=== PATIENT | female | born 1935 | race Asian ===

== ENCOUNTER 2017-07-01 14:04 | Emergency (ER) | payer MEDICARE, BC, OTHER ==
--- NOTE | 2017-07-01 15:28 | RAD ---
HISTORY: Diplopia, subacute trauma COMPARISONS: None TECHNIQUE: Multiple contiguous axial CT scans were obtained of the face without intravenous contrast, with coronal and sagittal multiplanar reformations. FINDINGS: BONES: There is no displaced fracture or dislocation. The orbital rim is intact. The zygomatic arch is intact. The pterygoid plates are intact. ORBITS: The globes are round. The optic nerves are symmetric. The extraocular musculature is normal. There is no post septal or intraconal inflammatory change. There is no retrobulbar hematoma. PARANASAL SINUSES: The paranasal sinuses are clear. BRAIN AND SOFT TISSUE: Unremarkable. OTHER: None. IMPRESSION: NO FACIAL FRACTURE. THE ORBITS ARE UNREMARKABLE.
[2017-07-01 15:34] VITALS: BP 147/78
--- NOTE | 2017-07-01 16:21 | UC ---
Head Injury HPI - HPI Summary HPI Summary: MISSED A STEP YESTERDAY AND RIGHT FACE HIT CORNER OF WALL. BRUISING TO RIGHT EYELID, WELL LACERATION TO RIGHT SIDE OF FACE AND REDNESS IN RIGHT EYE. SINCE INJURY HAS NO PAIN WITH MOVEMENT OF EYE. BUT HAS SOME BLURRINESS AND DOUBLE VISION. NO SLURRED SPEECH. NO WEAKNESS. NO DIFFICULTY WITH BALANCE. NO NECK PAIN. ABLE TO FOCUS EACH EYE INDEPENDENTLY. HAS APPOINTMENT WITH DR BHAGAT' S SERVICE TOMORROW MORNING - History Of Current Complaint Chief Complaint: UCTrauma Stated Complaint: FACIAL INJURY Time Seen by Provider: 07/01/17 14:50 Hx Obtained From: Patient Onset/Duration: Sudden Onset, Lasting Days, Still Present Severity Currently: Moderate Severity Initially: Mild Pain Intensity: 0 Pain Scale Used: 0-10 Numeric Character: Dull Aggravating Factor(s): Nothing Alleviating Factor(s): Nothing Associated Signs And Symptoms: Negative: LOC (Time In Secs./Mins/Hrs), LOC Duration Unknown, Confusion, Memory Loss, Seizure, Epistaxis, Dental Malocclusion, Neck Pain, Nausea, Vomiting - Risk Factors SDH Risk Factor: Recent Trauma, Elderly - Allergies/Home Medications Allergies/Adverse Reactions: Allergies Allergy/AdvReac Type Severity Reaction Status Date / Time Iodine Allergy Intermediate Hives Verified 07/01/17 14:11 Home Medications: Home Medications NK [No Home Medications Reported] 07/01/17 [History Confirmed 07/01/17] PMH/Surg Hx/FS Hx/Imm Hx Previously Healthy: Yes - Surgical History Surgical History: Yes Surgery Procedure, Year, and Place: bilat lumpectomy 2012. - Family History Known Family History: Negative: Seizure Disorder, Blood Disorder - Social History Occupation: Retired Lives: With Family Alcohol Use: None Substance Use Type: None Smoking Status (MU): Never Smoked Tobacco Review of Systems Constitutional: Negative Skin: Bruising, Other - LACERATION RIGHT SIDE OF FACE Eyes: Diplopia, Eye Redness ENT: Negative Respiratory: Negative Cardiovascular: Negative Gastrointestinal: Negative Genitourinary: Negative Motor: Negative Neurovascular: Negative Musculoskeletal: Negative Neurological: Negative Psychological: Negative All Other Systems Reviewed And Are Negative: Yes Physical Exam Triage Information Reviewed: Yes Appearance: Well-Appearing, No Pain Distress, Well-Nourished Vital Signs: Initial Vital Signs Temp 99.0 F 07/01/17 14:08 Pulse 88 07/01/17 14:08 Resp 16 07/01/17 14:08 BP 142/82 07/01/17 14:08 Pulse Ox 98 07/01/17 14:08 Vital Signs Reviewed: Yes Eyes: Positive: Other: - SUBCONJUNCTIVAL HEMMORHAGE RIGHT EYE; BRUISING, HEMATOMA TO RIGHT EYELID ENT Exam: Normal ENT: Positive: Normal ENT inspection, Hearing grossly normal, TMs normal Dental Exam: Normal Neck exam: Normal Neck: Positive: Supple, Nontender, No Lymphadenopathy Respiratory Exam: Normal Respiratory: Positive: Chest non-tender, Lungs clear, Normal breath sounds, No respiratory distress Cardiovascular Exam: Normal Cardiovascular: Positive: RRR, No Murmur, Pulses Normal Abdominal Exam: Normal Musculoskeletal Exam: Normal Musculoskeletal: Positive: Strength Intact, ROM Intact Neurological Exam: Normal Neurological: Positive: Alert Psychological Exam: Normal Skin: Positive: Other - >24 HOUR OLD LACERATION RIGHT SIDE OF FACE Head Injury Course/Dx - Differential Dx/Diagnosis Differential Diagnosis/HQI/PQRI: Concussion Without LOC, Hematoma, Orbital Fracture Provider Diagnoses: RIGHT SUBCONJUNCTIVAL HEMATOMA; 2CM LACERATION TO RIGHT SIDE OF HEAD WITH STERI REPAIR, HEAD TRAUMA, HEMATOMA RIGHT EYELIDS Discharge - Discharge Plan Condition: Stable Disposition: HOME Patient Education Materials: Subconjunctival Hemorrhage (ED), Black Eye (ED), Steristrips (ED), Laceration Without Closure (ED) Referrals: Belem Obrien MD [Primary Care Provider] - John Bhagat MD [Medical Doctor] - 1 Day
== END 2017-07-01 16:02 | disposition home or self-care (01) ==
LOC: UCEAST 14:04
DX: H11.31 Conjunctival hemorrhage, right eye (principal); S01.81XA Laceration without foreign body of other part of head, initial encounter; S00.11XA Contusion of right eyelid and periocular area, initial encounter; S09.90XA Unspecified injury of head, initial encounter; W22.09XA Striking against other stationary object, initial encounter; Y93.9 Activity, unspecified; Y92.9 Unspecified place or not applicable
CPT/HCPCS: 70480; 99211; 99212; G0463

== ENCOUNTER 2017-07-02 10:04 | Emergency (ER) | payer MEDICARE, BC, OTHER ==
[2017-07-02 12:06] VITALS: BP 139/80
== END 2017-07-02 12:28 | disposition left against medical advice (07) ==
LOC: UCEAST 10:04
DX: Z51.89 Encounter for other specified aftercare (principal); Z53.21 Procedure and treatment not carried out due to patient leaving prior to being seen by health care provider

== ENCOUNTER 2019-08-07 09:46 | Emergency (ER) | payer MEDICARE, BC ==
[2019-08-07 10:14] VITALS: BP 110/74
--- NOTE | 2019-08-07 11:06 | UC ---
Skin Complaint HPI - HPI Summary HPI Summary: 83-year-old female with a rash in the groin area which has been progressively worsening over the past week. She is on some new medications. She denies any fever or chills. She has not been sexually active about 20 years. She denies any abnormal vaginal discharge. She states the rash is not really painful however sometimes when she touched it is painful. No drainage. The rash has been spreading around to her left buttocks. She also has 3 areas on her back of concern. She has 2 scabbed areas in her head she would like checked. [facility]. - History of Current Complaint Chief Complaint: UCRash Time Seen by Provider: 08/07/19 10:14 Stated Complaint: RASH Hx Obtained From: Patient ?: No Onset/Duration: Gradual Onset Skin Exposure Onset/Duration: Days Ago Timing: Constant Onset Severity: Mild Current Severity: Moderate Pain Intensity: 0 Location: Other - Patient has 2 scabbed areas on the top of her head, she has 2 areas on her back that are scabbed, she has a worsening rash in the groin which is spreading around to the left buttock. Character: Redness, Raised Aggravating Factor(s): Nothing Alleviating Factor(s): Nothing Associated Signs & Symptoms: Positive: Negative Related History: Recent change in medication - Allergy/Home Medications Allergies/Adverse Reactions: Allergies Allergy/AdvReac Type Severity Reaction Status Date / Time iodine Allergy Intermediate Hives Verified 08/07/19 10:03 Iodinated Contrast Media Allergy Unknown Dry Eyes Verified 08/07/19 10:03 [Iodinated Contrast- Oral and IV Dye] Home Medications: Home Medications Lenalidomide [Revlimid] 15 mg PO DAILY 08/07/19 [History Confirmed 08/07/19] Obinutuzumab* [Gazyva*] 1,000 mg .SEE ORDER MONTHLY 08/07/19 [History Confirmed 08/07/19] Torsemide TAB* [Demadex*] 10 mg PO DAILY 08/07/19 [History Confirmed 08/07/19] dexAMETHasone [Dexamethasone] 4 mg PO WEEKLY 08/07/19 [History Confirmed ] PMH/Surg Hx/FS Hx/Imm Hx Previously Healthy: Yes Cancer History: Breast Cancer, Other - Lymphoma - Surgical History Surgical History: Yes Surgery Procedure, Year, and Place: bilateral lumpectomy - Family History Known Family History: Negative: Seizure Disorder, Blood Disorder - Social History Alcohol Use: None Substance Use Type: None Smoking Status (MU): Never Smoked Tobacco Review of Systems All Other Systems Reviewed And Are Negative: Yes Skin: Positive: Rash - 2 scabbed areas on the top of her head 3 scabbed areas on her back and the rash in her groin which is progressively worsening. Is Patient Immunocompromised?: No Physical Exam Triage Information Reviewed: Yes Appearance: Well-Appearing, No Pain Distress, Well-Nourished Vital Signs: Initial Vital Signs Temp 99 F 08/07/19 10:06 Pulse 90 08/07/19 10:06 Resp 18 08/07/19 10:06 BP 110/74 08/07/19 10:06 Pulse Ox 94 08/07/19 10:06 Vital Signs Reviewed: Yes ENT: Positive: Pharynx normal, TMs normal, Uvula midline Neck: Positive: Supple, Nontender, No Lymphadenopathy Musculoskeletal: Positive: Strength Intact, ROM Intact, Edema @ - Patient has bilateral lower leg edema more on the right than the left for which she is under the care of her primary care provider. Neurological: Positive: Alert, Muscle Tone Normal Psychological Exam: Normal Skin: Positive: Rashes - There are 2 scabs on the top for head which appear to be bug bites that she has scratched. The 3 areas on her back appear to be bug bites which she has scratched. The rash in her groin area has some bruising appearance to it some purplish red appearance, it includes the left fall the around to the perineum and her buttock. There are areas that look herpetic. It is nonblanching. Does not appear to be petechial. The rash on her left buttock is warm to touch but nontender. There are 2 or 3 areas on her left vulva that are bluish in appearance, non-tender almost of a wartlike appearance to them. Course/Dx - Course Course Of Treatment: The patient is comfortable here and not in any distress. She can put bacitracin ointment on the areas that appear like bug bites and avoid scratching. Dr. Romero evaluated the patient as well and because of the medication she is on and her more than likely depressed immune system, is felt that she should be evaluated further in the emergency room. The rash area on her left buttock is warm to touch. The patient is agreeable to this plan of action and will go by private car to the emergency room for evaluation. - Diagnoses Provider Diagnosis: Rash and other nonspecific skin eruption Discharge ED - Sign-Out/Discharge Documenting (check all that apply): Patient Departure All imaging exams completed and their final reports reviewed: No Studies - Discharge Plan Condition: Fair Disposition: HOME-RECOMMEND TO ED Referrals: Belem Obrien MD [Primary Care Provider] - Additional Instructions: After the evaluation by the nurse practitioner, it is recommended that you go to the emergency room for further evaluation of the worsening rash where you should receive additional testing that can be completed in the emergency department. It is recommended that you go directly to the emergency department. This evaluation may include blood work or imaging. This testing will be directed and decided by the provider that evaluates you within the emergency department. - Billing Disposition and Condition Condition: FAIR Disposition: Home-Recommend to ED
== END 2019-08-07 11:12 | disposition home health service (06) ==
LOC: UCEAST 09:46
DX: R21 Rash and other nonspecific skin eruption (principal); Z85.3 Personal history of malignant neoplasm of breast; Z85.72 Personal history of non-Hodgkin lymphomas
CPT/HCPCS: 99212; G0463

== ENCOUNTER 2019-08-07 11:40 | Emergency (ER) | payer MEDICARE, BC ==
[2019-08-07 11:46] VITALS: BP 105/70
--- OUTSIDE RECORDS SUMMARY | 2019-08-07 12:00 | XMS REPORT | Continuity of Care Document ---
:1935 External Reference #:[id number] Author Name Bobby Mcgrath M.D. (transmitted by agent of provider Maryann Ferguson) Address [address] [facility] [address] [place] [address] Care Team Providers Name Role Phone Belem Obrien MD - Internal Medicine Care Team Information Pcb Designer Problems Active Problems Provider Date Electrocardiogram abnormal Bobby Mcgrath M.D. Onset: 12/14/2013 Limb Problems & Other Problems Bobby Mcgrath M.D. Onset: 12/14/2013 Unspecified Edema Bobby Mcgrath M.D. Onset: 12/14/2013 Mitral valve disorder Bobby Mcgrath M.D. Onset: 01/25/2014 Rheumatic disease of tricuspid valve Bobby Mcgrath M.D. Onset: 01/25 Heart murmur Bobby Mcgrath M.D. Onset: 01/25/2014 Social History Type Date Description Comments Sex Unknown Tobacco Use Start: Unknown Never Smoked Cigarettes Smoking Status Reviewed: 07/08/19 Never Smoked Cigarettes ETOH Use Denies alcohol use Tobacco Use Start: Unknown Patient has never smoked Recreational Drug Use Denies Drug Use Exercise Type/Frequency Exercises sporadically Limited by breathing difficulty Allergies, Adverse Reactions, Alerts Active Allergies Reaction Severity Comments Date CT Contrast Dye 04/26/2019 Inactive Allergies NKDA 12/14/2013 Medications Active Medications SIG Qnty Indications Ordering Date Provider Obsarahd infusions began April Unknown 06/01/2019 Infusion 2019. Pt now receiving monthly infusions Magnesium 1 by mouth one time Unknown 400mg per day Tablets Vitamin D3 1 by mouth every day Unknown 5000Unit Capsules Vitamin C Angelina C. Unknown 500mg Tablets Mushroom Supplement [employer] [place] Unknown Tail Ibuprofen 2 by mouth as needed Unknown 200mg Tablets Allergy Relief 2 by mouth as needed Unknown 25mg Tablets Proair HFA Inhale 2 Puffs 4 Unknown Times Daily as Needed 108(90Base) mcg/Act Aerosol Prednisone 6 tablets by mouth Unknown 10mg for 4 days Tablets Uva Ursi 3 caps po qd Unknown Medications Administered in Office Medication SIG Qnty Indications Ordering Provider Date Inj, Regadenoson, 0.1 MG Ko Ahumada, DO [facility] 04/24/2016 Injection Technetium TC 99M Ko Ahumada, DO [facility] 04/24/2016 Tetrofosmin, Per Unit Dose Up To 40 Millicuries Injection Immunizations CPT Code Status Date Vaccine Lot # [id number] Given 11/01/2008 Zoster (Zostavax) 88382 Given 11/01/2008 Influenza Virus 3Yrs & Over 59079 Given 11/01/2008 Influenza Virus 3Yrs & Over Vital Signs Date Vital Result Comment 07/08/2019 11:17am Height 61 inches 5'1" Weight 125.00 lb with shoes Heart Rate 82 /min BP Systolic Sitting 110 mmHg lue reg cuff BP Diastolic Sitting 64 mmHg lue reg cuff BP Systolic Standing 112 mmHg lue reg cuff BP Diastolic Standing 68 mmHg lue reg cuff Respiratory Rate 16 /min BMI (Body Mass Index) 23.6 kg/m2 Ejection Fraction 65-70% echo. 07/05/19 06/02/2019 8:27am Height 61 inches 5'1" Weight 121.12 lb Heart Rate 80 /min BP Systolic Sitting 124 mmHg BP Diastolic Sitting 80 mmHg O2 % BldC Oximetry 91 % BMI (Body Mass Index) 22.9 kg/m2 Ejection Fraction 60-65% Echo 03/27/16 Results Test Date Facility Test Result H/L Range Note Laboratory test 06/02/2019 [facility] B-Type 29 pg/mL <=[address] [place] [address] Peptide BNP [phone] Xray 06/02/2019 [facility] Chest PA & Lat 2 <pending> [address] [place] [address] [phone] Laboratory test 02/22/2019 [facility] Gram Stain Smear SEE RESULT [address] [place] [address] [phone] Body Fluid Culture (Bottles) SEE RESULT BELOW 2 Lactate 02/22/2019 [facility] Lactate 265 U/L 3 Dehydrogenase,BF [address] Dehydrogenase, [place] [address] [phone] Fluid Source PLEURAL 4 Body Fluid Glucose 02/22/2019 [facility] Glucose, BF 110 mg/dL [address] [place] [address] [phone] Fluid Source PLEURAL 6 Body Fluid Total 02/22/2019 [facility] Total Protein, 3.5 g/ dL [address] [place] [address] [phone] Fluid Source PLEURAL 8 Platelet 02/22/2019 [facility] Platelet 209 10^3/uL Normal 150 -[address] Count [place], [place] [address] [phone] Mean Platelet Volume 8.8 fL Normal 7.4-10.4 Inr/Protime 02/22/2019 [facility] Inr 0.90 Normal 0.77-1.[address] [place] [address] [phone] Laboratory test 02/22/2019 [facility] Partial 30.5 Normal 26.0 -36.[address] [address] Time PTT [phone] SEE RESULT BELOW Name: TAMMIZOIE Wang : [address]: Belem Obrien MD Acct: [id number] Unit: [id number] AGE: 83 Location: SP Re02/22/19 SEX: F Status: REG REF SPEC: [id number] FERMIN: 02/22/19-[address] [facility] [address]: Belem Obrien MD REQ: [id number] RECD: 02/22/19 STATUS: LUCI MCALLISTER DR: Gopi Mcgrath MD _ SOURCE: BODY FLUID SPDESC:PLEURA ORDERED: Gram Stain Procedure Result Reported Site Gram Stain Final 02/22/19- 1224 ML 4+ Nucleated Cells 2+ Neutrophils No Organisms Seen BY CYTOSPIN SMEAR * - Main Lab . END OF REPORT DEPARTMENT OF PATHOLOGY, [address] [place] [address] Lorenzo Montaño M.D. Director CATHY # [id number] 2 SEE RESULT BELOW Name: ZOIE PARR : [address]: Belem Obrien MD Acct: [id number] Unit: [id number] AGE: 83 Location: SP Re02/22/19 SEX: F Status: REG REF SPEC: [id number] FERMIN: 02/22/19-[address] [facility] [address]: Belem Obrien MD REQ: [id number] RECD: 02/22/19 STATUS: LUCI MCALLISTER DR: Gopi Mcgrath MD _ SOURCE: PLEURAL FL SPDESC: ORDERED: BF Cult Bottles Procedure Result Reported Site BF Aerobic Culture Bottle Final 02/27/19- 1128 ML No Growth Day 5 BF Anaerobic Culture Bottle Final 02/27/19- 1128 ML No Growth Day 5 * ML - [facility] . END OF REPORT DEPARTMENT OF PATHOLOGY, [address] [place] [address] Lorenzo Montaño M.D. Director [facility] # [id number] 3 REFERENCE VALUE Not Applicable 4 Test Performed by: [facility] Real Time Tomography [facility] [address] [place] [address] 5 REFERENCE VALUE Not Applicable 6 Test Performed by: [address] [address] 7 REFERENCE VALUE Not Applicable ADDITIONAL INFORMATION This test has been modified from the mechanical product design engineer's instructions. Its performance characteristics were determined by [facility] in a manner consistent with CLIA requirements. This test has not been cleared or approved by the U.S. Food and Drug Administration. 8 Test Performed by: [address] [address] Procedures Date Code Description Status 07/05/2019 41394 ECHO Transthoracic, Real-Time 2D With Doppler And Color Completed Flow 06/23/2019 70893 Diffusing Capacity Completed 06/23/2019 98083 Plethysmography Determination Lung Volumes & Per Airway Completed Resist 06/23/2019 01618 Pulmonary Function><Bronchodil Completed 06/02/2019 53046 EKG Tracing & Interpretation Completed Medical Devices Description No Information Available Encounters Type Date Location Provider Dx Diagnosis Office Visit 06/02/2019 [facility] Barbra Banks, R60.0 Localized edema 8:30a N.P. 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 07/08/2019 I34.0 Nonrheumatic mitral (valve) Bobby Mcgrath M.D. insufficiency 07/08/2019 I36.1 Nonrheumatic tricuspid (valve) Bobby Mcgrath M.D. insufficiency 07/08/2019 I37.1 Nonrheumatic pulmonary valve Bobby Mcgrath M.D. insufficiency 07/08/2019 I31.3 Pericardial effusion (noninflammatory) Bobby Mcgrath M.D. 07/05/2019 R06.00 Dyspnea, unspecified [facility] 07/05/2019 R94.31 Abnormal electrocardiogram [ECG] [EKG] [facility] 07/05/2019 R60.0 Localized edema [facility] 07/05/2019 I34.0 Nonrheumatic mitral (valve) [facility] insufficiency 06/23/2019 R06.00 Dyspnea, unspecified Angela Bender MD 06/02/2019 R94.31 Abnormal electrocardiogram [ECG] [EKG] Bobby Mcgrath M.D. 06/02/2019 R60.0 Localized edema Barbra S. Foster, N.P. 06/02/2019 I34.0 Nonrheumatic mitral (valve) Barbra S. Foster, N.P. insufficiency 06/02/2019 I36.1 Nonrheumatic tricuspid (valve) Barbra S. Foster, N.P. insufficiency 06/02/2019 I37.1 Nonrheumatic pulmonary valve Barbra S. Foster, N.P. insufficiency 06/02/2019 R06.00 Dyspnea, unspecified Barbra S. Foster, N.P. 04/26/2019 J90 Pleural effusion, not elsewhere Goran Box MD classified Plan of Treatment Future Appointment(s):07/26/2019 3:00 pm - [facility] Schedule at [facility]12/13/2019 10:30 am - Julian Dash MD at [facility] Xncpfqafrym81/22/2019 - Bobby Mcgrath M.D.R06.00 Dyspnea, isvnwlxujuzC93.0 Nonrheumatic mitral (valve) insufficiencyFollow up:10 months ovI36.1 Nonrheumatic tricuspid (valve) rtdyzkhjwjikwU82.1 Nonrheumatic pulmonary valve rmplsizetbgfqT12.3 Pericardial effusion (noninflammatory)New Orders:Echocardiogram, Limited Study, Ordered: Functional Status Description No Information Available Mental Status Description No Information Available Referrals Description No Information Available
--- NOTE | 2019-08-07 12:09 | ED ---
Skin Complaint - HPI Summary HPI Summary: This patient is a 83 year old F presenting to [facility] accompanied by female friend with a chief complaint of rash starting from vaginal area spreading to the left back of her thigh and hip since last Friday08/01/19. Symptoms aggravated by pushing on area of symptom. Symptoms alleviated by nothing. Patient reports that she noticed the rash when she was wiping and the toilet paper felt rough and painful so she started putting on an ointment and then an abx ointment hoping it would improve her symptoms but reports that they had no effect. Pt denies any obvious discharge but reports a little pinkness, possibly blood, but denies any smell. Patient reports when she was taking a bath she noticed the bumps on her back side and thought her vaginal area rash was spreading. Pt reports pain when pushing on it but otherwise only feels its presence. Pt denies fevers, nausea, urinary symptoms (taking water pill due to edema). Pt denies previous history of a similar rash but hx shingles. Pt reports her doctor is unsure of the cause and thinks they arose due to cancer treatment medications. Pt reports her doctor is concerned of herpes or any skin infection. Pt reports itchiness near the back of her neck if she touches it and gooey-ness on the top of her head. Pt reports DIRECTOR GENERAL said the top of her head is a bug bite. Pt has edema on her lower extremities. Home Medications Medication Instructions Recorded Confirmed Type Lenalidomide [Revlimid] 15 mg PO DAILY 08/07/19 08/07/19 History Obinutuzumab* [Gazyva*] 1,000 mg .SEE ORDER MONTHLY 08/07/19 08/07/19 History Torsemide TAB* [Demadex*] 10 mg PO DAILY 08/07/19 08/07/19 History dexAMETHasone [Dexamethasone] 4 mg PO WEEKLY 08/07/19 08/07/19 History - History of Current Complaint Chief Complaint: EDRashSkinAbscess Time Seen by Provider: 08/07/19 11:51 Stated Complaint: "RASH PER PT COMING FROM [facility]" Hx Obtained From: Patient Onset/Duration: Started Weeks Ago - 1, Still Present Timing: Constant Pain Intensity: 0 Pain Scale Used: 0-10 Numeric Skin Location: Other: - left thigh and vaginal area Aggravating Symptom(s): Other: - pushing on it Alleviating Symptom(s): Nothing Associated Signs & Symptoms: Negative - denies fevers, nausea, urinary symptoms , and smell in vaginal area reports no obvious discharge but slight blood - Allergy/Home Medications Allergies/Adverse Reactions: Allergies Allergy/AdvReac Type Severity Reaction Status Date / Time iodine Allergy Intermediate Hives Verified 08/07/19 11:46 Iodinated Contrast Media Allergy Unknown Dry Eyes Verified 08/07/19 11:46 [Iodinated Contrast- Oral and IV Dye] PMH/Surg Hx/FS Hx/Imm Hx Endocrine/Hematology History: Denies: Hx Diabetes Cardiovascular History: Denies: Hx Hypertension History: Reports: Hx Renal Disease - abnormal gfr Denies: Hx Dialysis Musculoskeletal History: Denies: Hx Osteoporosis - Cancer History Cancer Type, Location and Year: Lymphoma x 25 years and bilateral breast cancer 2013 with lumpectomies. - Surgical History Surgery Procedure, Year, and Place: bilateral lumpectomy Infectious Disease History: No Infectious Disease History: Denies: Hx Clostridium Difficile, Hx Hepatitis, Hx Human Immunodeficiency Virus (HIV), Hx of Known/Suspected MRSA, Hx Shingles, Hx Tuberculosis, Hx Known/ Suspected VRE, Hx Known/Suspected VRSA, History Other Infectious Disease, Traveled Outside the [place] in Last 30 Days - Family History Known Family History: Negative: Seizure Disorder, Blood Disorder - Social History Alcohol Use: None Hx Substance Use: No Substance Use Type: Reports: None Hx Tobacco Use: No Smoking Status (MU): Never Smoked Tobacco Review of Systems Negative: Fever Negative: Nausea Genitourinary: Other - denies urinary symptoms Positive: discharge - slight pinkness Positive: Edema - on her legs Positive: Rash, Other - itchiness of the back of neck, 'googey'ness on top of head All Other Systems Reviewed And Are Negative: Yes Physical Exam - Summary Physical Exam Summary: General: Well-developed, Well-nourished FEMALE. No acute distress. HEENT: Normocephalic, Atraumatic. Eyes: Conjuctiva normal, PERRL. Ears: TMs within normal limits. Nares: (-) discharge, (-) erythema. Oropharynx: Clear, mucous membranes moist, (-) exudates. Neck: Soft, FROM, (-) lymphadenopathy, (-) thyromegaly, (-) JVD. Cardiovascular: Normal sinus rhythm, (-) murmur. Lungs: Clear to auscultation bilaterally (-) wheezes, (-) rales, (-) rhonchi. Abdomen: Soft, non-tender, non-distended, (-) organomegaly, normal bowel sounds. Back: (-) CVA tenderness Extremities: No edema. Skin: Warm, dry, clusters of erythematous papules and vesicles on the left suprapubic area, labial area, and left buttock Neuro: Alert and oriented x3, no focal deficits. Psychiatric: Mood normal, affect normal. Triage Information Reviewed: Yes Vital Signs On Initial Exam: Initial Vitals Temp Pulse Resp BP Pulse Ox 98.7 F 85 16 105/70 93 08/07/19 11:43 08/07/19 11:43 08/07/19 11:43 08/07/19 11:43 08/07/19 11:43 Vital Signs Reviewed: Yes Diagnostics - Vital Signs Vital Signs Temp Pulse Resp BP Pulse Ox 08/07/19 11:43 98.7 F 85 16 105/70 93 - Laboratory Lab Statement: Any lab studies that have been ordered have been reviewed, and results considered in the medical decision making process. Course/Dx - Course Assessment/Plan: This patient is a 83 year old F [place] [facility] [place] friend with a chief complaint of rash starting from vaginal area spreading to the left back of her thigh and hip since last Friday. Pt denies any obvious discharge but reports a little pinkness, possibly blood, but denies any smell. Pt denies fevers, nausea, urinary symptoms (taking water pill due to edema). Pt denies previous history of a similar rash but hx shingles. Physical Exam Findings show no abnormalities except for clusters of erythematous papules and vesicles on the left suprapubic area, labial area, and left buttock. Patient will be discharged with prescription for Famciclovir 500 mg and follow up from Dr. Obrien within 3 days. The patient is agreeable with this plan. - Diagnoses Provider Diagnoses: Shingles Discharge ED - Sign-Out/Discharge Documenting (check all that apply): Patient Departure - discharge Patient Received Moderate/Deep Sedation with Procedure: No - Discharge Plan Condition: Stable Disposition: HOME Prescriptions: Famciclovir TAB(NF) [Famvir TAB(NF)] 500 mg PO TID 7 Days #21 tab Patient Education Materials: [employer] (ED) Referrals: Belem Obrien MD [Primary Care Provider] - 3 Days Additional Instructions: Please follow up with your primary care physician within three days. Please return to ED for any new or worsening symptoms. - Billing Disposition and Condition Condition: STABLE Disposition: Home - Attestation Statements Document Initiated by Rosmerye: Yes Documenting Scribe: Vianey Camacho Provider For Whom Bhupendraibe is Documenting (Include Credential): Dr. Dina Burgos MD Scribe Attestation: Vianey Deshpande, scribed for Dr. Dina Burgos MD on 08/07/19 at 1334. Scribe Documentation Reviewed: Yes Provider Attestation: The documentation as recorded by the Vianey sawyer accurately reflects the service I personally performed and the decisions made by me, Dr. Dina Burgos MD Status of Scribe Document: Viewed
== END 2019-08-07 12:24 | disposition home or self-care (01) ==
LOC: ED 11:40
DX: B02.9 Zoster without complications (principal); Z85.3 Personal history of malignant neoplasm of breast; Z85.72 Personal history of non-Hodgkin lymphomas; Z91.041 Radiographic dye allergy status; Z79.899 Other long term (current) drug therapy
CPT/HCPCS: 99212; 99281; G0463

== ENCOUNTER 2020-11-09 21:08 | Inpatient (IN) ==
[2020-11-09] MEDS ORDERED: NS 0.9% 1000 ml BAG 1,000 ML IV ONE (22:11)
[2020-11-09] MEDS ORDERED: Tetan/Diph/Pertus SYR(Tdap) 0.5 ML SYR(BOOSTRIX) use SYR contains LATEX IM ONE (22:32)
[2020-11-09 22:40] LABS: ABS Lymphocytes 0.4 10^3/ul (1.0-4.8); ABS Monocytes 0.5 10^3/ul (0-0.8); ABS Neutrophils 6.7 10^3/ul (1.5-7.7); Eosinophil % 0.2 %; Hematocrit 29 % (35-47); Hemoglobin 10.2 g/dL (12.0-16.0); Lymphocyte % 4.8 %; Mean Corpuscular HGB Conc 36 g/dL (31-36); Mean Corpuscular Hemoglobin 33 pg (27-31); Mean Corpuscular Volume 93 fL (80-97); Mean Platelet Volume 8.6 fL (7.4-10.4); Platelet Count 140 10^3/uL (150-450); Red Blood Count 3.06 10^6 /uL (3.70-4.87); Red Cell Distribution Width 18 % (10-15); White Blood Count 7.5 10^3/uL (3.5-10.8)
[2020-11-09 22:53] LABS: INR 1.1 (0.82-1.09)
[2020-11-09 22:58] LABS: Albumin 3.5 g/dL (3.2-5.2); Albumin/Globulin Ratio 2.2 (1-3); Calcium 8.1 mg/dL (8.6-10.3); EGFR African American 133.3 (>60); EGFR Non-African American 110.2 (>60); Globulin 1.6 g/dL (2-4); Potassium 4.1 mmol/L (3.5-5.0); Total Bilirubin 0.4 mg/dL (0.2-1.0); Total Protein 5.1 g/dL (6.4-8.9)
[2020-11-09 23:00] LABS: Troponin I 0.01 ng/mL (<0.03)
[2020-11-10 01:19] LABS: BUN/Creatinine Ratio 21.4 (8-20); Calcium 7.5 mg/dL (8.6-10.3); EGFR African American 174.4 (>60); EGFR Non-African American 144.1 (>60)
[2020-11-10 01:53] LABS: Urine Creatinine Concentration 119.43 mg/dL
[2020-11-10 03:22] LABS: Urine Appearance Clear; Urine Bilirubin Negative (Negative); Urine Blood Negative (Negative); Urine Color Yellow; Urine Glucose Negative (Negative); Urine Ketones 1+ (Negative); Urine Nitrite Negative (Negative); Urine Protein Negative (Negative); Urine Urobilinogen Negative (Negative)
[2020-11-10 08:11] LABS: BUN/Creatinine Ratio 13.3 (8-20); Calcium 7.8 mg/dL (8.6-10.3); EGFR Non-African American 133.1 (>60); Potassium 4.1 mmol/L (3.5-5.0)
[2020-11-10 12:55] LABS: BUN/Creatinine Ratio 15.4 (8-20); Calcium 7.6 mg/dL (8.6-10.3); EGFR African American 189.9 (>60)
[2020-11-10] MEDS ORDERED: Dexamethasone IV 4 MG/ML 5 ML VIAL (20 MG) ONE (19:59)
[2020-11-10 21:15] LABS: Calcium 8.1 mg/dL (8.6-10.3); EGFR Non-African American 129.7 (>60); Potassium 3.9 mmol/L (3.5-5.0)
[2020-11-11 01:14] LABS: BUN/Creatinine Ratio 15.4 (8-20); Calcium 7.7 mg/dL (8.6-10.3); EGFR African American 189.9 (>60); Potassium 3.9 mmol/L (3.5-5.0)
[2020-11-11 05:27] LABS: BUN/Creatinine Ratio 13.6 (8-20); Calcium 7.4 mg/dL (8.6-10.3); EGFR African American 165.2 (>60); EGFR Non-African American 136.6 (>60); Potassium 3.7 mmol/L (3.5-5.0)
[2020-11-11] MEDS ORDERED: Dextrose 50% Syringe 50 ml 25 GM/50 ML SYRINGE ONE (05:29)
[2020-11-11] MEDS ORDERED: Dextrose 50% Syringe 50 ml 25 GM/50 ML SYRINGE IV PUSH ONE (05:31)
[2020-11-11 09:45] LABS: BUN/Creatinine Ratio 13.6 (8-20); Blood Urea Nitrogen 6 mg/dL (6-24); CO2 Carbon Dioxide 16 mmol/L (22-32); Chloride 103 mmol/L (101-111); EGFR African American 165.2 (>60); EGFR Non-African American 136.6 (>60); Glucose 60 mg/dL (70-100); Sodium 126 mmol/L (135-145)
[2020-11-11 09:55] LABS: Anion Gap 7 mmol/L (2-11)
[2020-11-11] MEDS ORDERED: Dextrose 50% Syringe 50 ml 25 GM/50 ML SYRINGE IV PUSH PRN (10:30)
[2020-11-11 12:21] LABS: BUN/Creatinine Ratio 13.6 (8-20); Calcium 7.8 mg/dL (8.6-10.3); EGFR African American 165.2 (>60); EGFR Non-African American 136.6 (>60); Potassium 3.6 mmol/L (3.5-5.0)
[2020-11-11 14:53] LABS: BUN/Creatinine Ratio 15.6 (8-20); EGFR African American 238.6 (>60); EGFR Non-African American 197.2 (>60); Potassium 2.9 mmol/L (3.5-5.0)
[2020-11-11 14:55] LABS: Calcium 6.1 mg/dL (8.6-10.3)
[2020-11-11 15:17] LABS: Albumin 2.5 g/dL (3.2-5.2)
[2020-11-11] MEDS ORDERED: D5W 250 ml BAG 250 ML IV ONE (15:50)
[2020-11-11] MEDS: KCL 20 MEQ/100 ML IVPREMIX 20 MEQ/100 ML BAG IV SCH ×2 (16:32→18:47)
[2020-11-11 18:49] LABS: BUN/Creatinine Ratio 14.3 (8-20); Calcium 8.2 mg/dL (8.6-10.3); EGFR African American 174.4 (>60); EGFR Non-African American 144.1 (>60); Potassium 4.3 mmol/L (3.5-5.0)
[2020-11-11 19:15] LABS: Urine Potassium Concentration 44.3 mmol/L
[2020-11-11 19:40] LABS: Urine Appearance Clear; Urine Color Yellow; Urine Ketones 2+ (Negative); Urine Protein Negative (Negative); Urine Specific Gravity 1.014 (1.010-1.030); Urine Urobilinogen Negative (Negative)
[2020-11-11 19:41] LABS: Urine Bacteria Absent (Absent); Urine Bilirubin Negative (Negative); Urine Blood Negative (Negative); Urine Glucose 3+(>=500 mg/dL) (Negative); Urine Nitrite Positive (Negative); Urine Red Blood Cell Trace(0-2/hpf) (Absent); Urine White Blood Cell 1+(6-10/hpf) (Absent)
[2020-11-11 23:34] LABS: BUN/Creatinine Ratio 12.5 (8-20); Calcium 8.3 mg/dL (8.6-10.3); EGFR African American 184.4 (>60); EGFR Non-African American 152.4 (>60); Potassium 4.3 mmol/L (3.5-5.0)
[2020-11-12 03:52] LABS: Hematocrit 26 % (35-47); Hemoglobin 9.2 g/dL (12.0-16.0); Mean Corpuscular HGB Conc 35 g/dL (31-36); Mean Corpuscular Hemoglobin 33 pg (27-31); Mean Corpuscular Volume 95 fL (80-97); Mean Platelet Volume 8.2 fL (7.4-10.4); Platelet Count 156 10^3/uL (150-450); Red Blood Count 2.79 10^6 /uL (3.70-4.87); Red Cell Distribution Width 18 % (10-15); White Blood Count 4.2 10^3/uL (3.5-10.8)
[2020-11-12 04:10] LABS: BUN/Creatinine Ratio 13.2 (8-20); EGFR African American 195.7 (>60); EGFR Non-African American 161.7 (>60); Potassium 4.2 mmol/L (3.5-5.0)
[2020-11-12 04:19] LABS: ABS Lymphocytes 0.2 10^3/ul (1.0-4.8); ABS Monocytes 0.4 10^3/ul (0-0.8); ABS Neutrophils 3.5 10^3/ul (1.5-7.7); Eosinophil % 0.5 %; Lymphocyte % 5.7 %
[2020-11-12 08:03] LABS: BUN/Creatinine Ratio 9.3 (8-20); EGFR African American 169.7 (>60); EGFR Non-African American 140.2 (>60); Potassium 4.2 mmol/L (3.5-5.0)
[2020-11-12 11:53] LABS: BUN/Creatinine Ratio 9.8 (8-20); EGFR African American 179.3 (>60); EGFR Non-African American 148.2 (>60); Potassium 3.8 mmol/L (3.5-5.0)
[2020-11-12 15:44] LABS: BUN/Creatinine Ratio 10.9 (8-20); Calcium 8.6 mg/dL (8.6-10.3); EGFR Non-African American 129.7 (>60)
[2020-11-12 19:30] LABS: BUN/Creatinine Ratio 12.5 (8-20); Calcium 8.3 mg/dL (8.6-10.3); EGFR African American 184.4 (>60); EGFR Non-African American 152.4 (>60); Potassium 3.9 mmol/L (3.5-5.0)
[2020-11-13 03:50] LABS: BUN/Creatinine Ratio 13.6 (8-20); Calcium 8.2 mg/dL (8.6-10.3); EGFR African American 165.2 (>60); EGFR Non-African American 136.6 (>60)
[2020-11-13 06:12] LABS: ABS Lymphocytes 0.3 10^3/ul (1.0-4.8); ABS Monocytes 0.5 10^3/ul (0-0.8); ABS Neutrophils 3.2 10^3/ul (1.5-7.7); Eosinophil % 0.3 %; Hematocrit 26 % (35-47); Hemoglobin 9.1 g/dL (12.0-16.0); Lymphocyte % 7.4 %; Mean Corpuscular HGB Conc 35 g/dL (31-36); Mean Corpuscular Hemoglobin 33 pg (27-31); Mean Corpuscular Volume 95 fL (80-97); Mean Platelet Volume 7.8 fL (7.4-10.4); Platelet Count 155 10^3/uL (150-450); Red Blood Count 2.75 10^6 /uL (3.70-4.87); Red Cell Distribution Width 19 % (10-15)
[2020-11-13] MEDS ORDERED: Magnesium Sulfate IV 3 GM in NS 0.9% 100 ml BAG 100 ML IVPB ONE (07:09)
[2020-11-13] MEDS: Enoxaparin 40 MG/0.4 ML SYR SUBCUT SCH (14:34)
[2020-11-14 06:51] LABS: Calcium 8.1 mg/dL (8.6-10.3); EGFR African American 174.4 (>60); EGFR Non-African American 144.1 (>60); Magnesium 2.2 mg/dL (1.9-2.7); Potassium 3.8 mmol/L (3.5-5.0)
[2020-11-14 08:12] VITALS: BP 89/70
[2020-11-14] MEDS ORDERED: CMC:Oral Rinse (Biotene)(NF) 237 ML or 473 ML ORAL RINSE BTL MT SCH (10:00)
[2020-11-14] MEDS: Enoxaparin 40 MG/0.4 ML SYR SUBCUT SCH (14:03)
== END 2020-11-14 14:15 | disposition home or self-care (01) | DRG 644 ==
LOC: ED 21:08 → ICU 11-10 00:05 → MEDTELE 11-13 06:26
PROVIDERS: ADMIT Internal Medicine; ATTEND Internal Medicine

== ENCOUNTER 2020-12-07 10:27 | Inpatient (IN) ==
[2020-12-07 11:02] LABS: ABS Lymphocytes 0.9 10^3/ul (1.0-4.8); ABS Monocytes 0.6 10^3/ul (0-0.8); ABS Neutrophils 6.3 10^3/ul (1.5-7.7); Eosinophil % 0.1 %; Hematocrit 33 % (35-47); Hemoglobin 11.4 g/dL (12.0-16.0); Mean Corpuscular HGB Conc 34 g/dL (31-36); Mean Corpuscular Hemoglobin 32 pg (27-31); Mean Corpuscular Volume 94 fL (80-97); Mean Platelet Volume 7.9 fL (7.4-10.4); Platelet Count 109 10^3/uL (150-450); Red Blood Count 3.54 10^6 /uL (3.70-4.87); Red Cell Distribution Width 16 % (10-15); White Blood Count 7.8 10^3/uL (3.5-10.8)
[2020-12-07 11:23] LABS: Albumin 3.6 g/dL (3.2-5.2); BUN/Creatinine Ratio 22.6 (8-20); Calcium 8.5 mg/dL (8.6-10.3); EGFR African American 133.3 (>60); EGFR Non-African American 110.2 (>60); Globulin 1.8 g/dL (2-4); Magnesium 1.8 mg/dL (1.9-2.7); Potassium 3.4 mmol/L (3.5-5.0); Total Bilirubin 0.6 mg/dL (0.2-1.0); Total Protein 5.4 g/dL (6.4-8.9)
[2020-12-07 11:53] LABS: C Reactive Protein 12.36 mg/L (<8.01)
[2020-12-07] MEDS ORDERED: Piperacillin/Tazobac ADVAN 3.375 GM in NS 0.9% 100 ml BAG 100 ML IV ONE (12:04)
[2020-12-07] MEDS ORDERED: Zosyn per Pharmacy NOTE FOLLOW UP SCH (13:00)
[2020-12-07] MEDS: Enoxaparin 40 MG/0.4 ML SYR SUBCUT SCH (17:19)
[2020-12-07] MEDS: Cholecalciferol (VIT D3) 400 units TAB PO SCH (17:22)
[2020-12-07] MEDS ORDERED: Magnesium Sulfate 2 gm BAG 2 GM/50 ML BAG IVPB ONE (17:35)
[2020-12-07] MEDS ORDERED: KCL 20 MEQ/100 ML IVPREMIX 20 MEQ/100 ML BAG IV ONE (17:35)
[2020-12-07 17:42] LABS: Urine Appearance Cloudy; Urine Bilirubin Negative (Negative); Urine Blood Negative (Negative); Urine Color Yellow; Urine Glucose Negative (Negative); Urine Ketones 2+ (Negative); Urine Nitrite Positive (Negative); Urine Protein 1+(30 mg/dL) (Negative); Urine Urobilinogen Negative (Negative)
[2020-12-07 17:49] LABS: Urine Bacteria 1+ (Absent); Urine Red Blood Cell Trace(0-2/hpf) (Absent); Urine Squamous Epithelial Cell Present (Absent); Urine White Blood Cell 1+(6-10/hpf) (Absent)
[2020-12-07] MEDS ORDERED: Lactated Ringers 1000 ml BAG 1,000 ML IV SCH (18:00)
[2020-12-07] MEDS: ZOSYN 3.375 GM Q8H per EXTENDED INFUSION IV SCH (19:24)
[2020-12-07] MEDS: Hydrocortisone INJ 100 MG/2ML 2 ML VIAL IV SCH (21:55)
[2020-12-08] MEDS: ZOSYN 3.375 GM Q8H per EXTENDED INFUSION IV SCH ×3 (01:48→18:13)
[2020-12-08 04:48] LABS: Hematocrit 29 % (35-47); Hemoglobin 9.7 g/dL (12.0-16.0); Mean Corpuscular HGB Conc 33 g/dL (31-36); Mean Corpuscular Hemoglobin 32 pg (27-31); Mean Corpuscular Volume 97 fL (80-97); Red Blood Count 3.02 10^6 /uL (3.70-4.87); Red Cell Distribution Width 17 % (10-15); White Blood Count 5.4 10^3/uL (3.5-10.8)
[2020-12-08 04:49] LABS: ABS Lymphocytes 0.7 10^3/ul (1.0-4.8); ABS Monocytes 0.1 10^3/ul (0-0.8); ABS Neutrophils 4.6 10^3/ul (1.5-7.7); Lymphocyte % 12.9 %
[2020-12-08 05:02] LABS: Albumin/Globulin Ratio 1.9 (1-3); BUN/Creatinine Ratio 28.6 (8-20); Calcium 7.8 mg/dL (8.6-10.3); EGFR African American 174.4 (>60); EGFR Non-African American 144.1 (>60); Globulin 1.6 g/dL (2-4); Total Bilirubin 0.5 mg/dL (0.2-1.0); Total Protein 4.6 g/dL (6.4-8.9)
[2020-12-08 05:10] LABS: Mean Platelet Volume 7.9 fL (7.4-10.4); Platelet Count 91 10^3/uL (150-450)
[2020-12-08 05:35] LABS: Magnesium 2.1 mg/dL (1.9-2.7)
[2020-12-08] MEDS: Hydrocortisone INJ 100 MG/2ML 2 ML VIAL IV SCH ×2 (08:42→20:15)
[2020-12-08] MEDS: Cholecalciferol (VIT D3) 400 units TAB PO SCH (16:09)
[2020-12-08] MEDS: Enoxaparin 40 MG/0.4 ML SYR SUBCUT SCH (17:09)
[2020-12-09] MEDS: ZOSYN 3.375 GM Q8H per EXTENDED INFUSION IV SCH ×3 (02:16→17:43)
[2020-12-09] MEDS: Hydrocortisone INJ 100 MG/2ML 2 ML VIAL IV SCH ×2 (09:40→21:31)
[2020-12-09] MEDS: IMMUNE GLOBULN IV SCH (16:19)
[2020-12-09] MEDS: Cholecalciferol (VIT D3) 400 units TAB PO SCH (16:59)
[2020-12-09] MEDS: Enoxaparin 40 MG/0.4 ML SYR SUBCUT SCH (17:43)
[2020-12-10] MEDS: ZOSYN 3.375 GM Q8H per EXTENDED INFUSION IV SCH ×2 (02:10→09:33)
[2020-12-10 05:09] LABS: Hematocrit 29 % (35-47); Mean Corpuscular HGB Conc 34 g/dL (31-36); Mean Corpuscular Hemoglobin 32 pg (27-31); Mean Corpuscular Volume 95 fL (80-97); Mean Platelet Volume 7.8 fL (7.4-10.4); Platelet Count 105 10^3/uL (150-450); Red Cell Distribution Width 16 % (10-15); White Blood Count 7.3 10^3/uL (3.5-10.8)
[2020-12-10 05:26] LABS: Albumin 3.1 g/dL (3.2-5.2); Albumin/Globulin Ratio 1.5 (1-3); Calcium 8.8 mg/dL (8.6-10.3); EGFR African American 127.7 (>60); EGFR Non-African American 105.6 (>60); Globulin 2.1 g/dL (2-4); Potassium 3.6 mmol/L (3.5-5.0); Total Bilirubin 0.6 mg/dL (0.2-1.0); Total Protein 5.2 g/dL (6.4-8.9)
[2020-12-10 05:40] LABS: ABS Lymphocytes 0.6 10^3/ul (1.0-4.8); ABS Monocytes 0.4 10^3/ul (0-0.8); ABS Neutrophils 6.3 10^3/ul (1.5-7.7); Lymphocyte % 8.6 %
[2020-12-10] MEDS: Hydrocortisone INJ 100 MG/2ML 2 ML VIAL IV SCH ×2 (09:29→22:24)
[2020-12-10] MEDS: IMMUNE GLOBULN IV SCH (17:10)
[2020-12-10] MEDS: Enoxaparin 40 MG/0.4 ML SYR SUBCUT SCH (17:14)
[2020-12-10] MEDS: Cholecalciferol (VIT D3) 400 units TAB PO SCH (17:34)
[2020-12-11] MEDS: Hydrocortisone INJ 100 MG/2ML 2 ML VIAL IV SCH ×2 (09:08→17:32)
[2020-12-11] MEDS: IMMUNE GLOBULN IV SCH (16:12)
[2020-12-11] MEDS: Enoxaparin 40 MG/0.4 ML SYR SUBCUT SCH (17:32)
[2020-12-11] MEDS: Cholecalciferol (VIT D3) 400 units TAB PO SCH (17:33)
[2020-12-12 06:05] LABS: ABS Lymphocytes 0.5 10^3/ul (1.0-4.8); ABS Monocytes 0.5 10^3/ul (0-0.8); ABS Neutrophils 1.5 10^3/ul (1.5-7.7); Eosinophil % 0.1 %; Hematocrit 28 % (35-47); Hemoglobin 9.6 g/dL (12.0-16.0); Lymphocyte % 19.1 %; Mean Corpuscular HGB Conc 35 g/dL (31-36); Mean Corpuscular Hemoglobin 32 pg (27-31); Mean Corpuscular Volume 93 fL (80-97); Mean Platelet Volume 8.3 fL (7.4-10.4); Nucleated Red Blood Cells % 0.1; Platelet Count 101 10^3/uL (150-450); Red Blood Count 2.95 10^6 /uL (3.70-4.87); Red Cell Distribution Width 16 % (10-15); White Blood Count 2.5 10^3/uL (3.5-10.8)
[2020-12-12 06:25] LABS: Albumin 2.8 g/dL (3.2-5.2); BUN/Creatinine Ratio 47.6 (8-20); Calcium 8.8 mg/dL (8.6-10.3); EGFR African American 174.4 (>60); EGFR Non-African American 144.1 (>60); Globulin 2.9 g/dL (2-4); Total Bilirubin 0.5 mg/dL (0.2-1.0); Total Protein 5.7 g/dL (6.4-8.9)
[2020-12-12] MEDS: Hydrocortisone INJ 100 MG/2ML 2 ML VIAL IV SCH ×2 (09:23→17:33)
[2020-12-12 10:59] LABS: Renin <0.6 ng/mL/h
[2020-12-12] MEDS: KCL 10 MEQ/50 ML IVPREMIX 10 MEQ/50 ML BAG IV SCH ×3 (15:26→18:59)
[2020-12-12] MEDS: IMMUNE GLOBULN IV SCH (16:12)
[2020-12-12] MEDS: Cholecalciferol (VIT D3) 400 units TAB PO SCH (17:28)
[2020-12-13 04:33] LABS: Free T4 1.27 ng/dL (0.61-1.12)
[2020-12-13] MEDS: Hydrocortisone INJ 100 MG/2ML 2 ML VIAL IV SCH ×2 (09:07→19:07)
[2020-12-13 09:40] LABS: Albumin 2.8 g/dL (3.2-5.2); Albumin/Globulin Ratio 0.9 (1-3); BUN/Creatinine Ratio 31.7 (8-20); Calcium 8.7 mg/dL (8.6-10.3); EGFR African American 179.3 (>60); EGFR Non-African American 148.2 (>60); Globulin 3.1 g/dL (2-4); Potassium 3.3 mmol/L (3.5-5.0); Total Bilirubin 0.5 mg/dL (0.2-1.0); Total Protein 5.9 g/dL (6.4-8.9)
[2020-12-13] MEDS ORDERED: fentaNYL 100 mcg/2 ml 50 MCG/ML VIAL ONE (15:13)
[2020-12-13] MEDS ORDERED: Midazolam 2 mg/2 ml VIAL 1 mg/ml 2 ml VIAL (2 mg) ONE (15:13)
[2020-12-13] MEDS ORDERED: Naloxone 0.4 mg VIAL 0.4 mg/ml 1 ml VIAL ONE (15:13)
[2020-12-13] MEDS ORDERED: Bupivacaine 0.25% SDV PF 10 ML VIAL INJ ONE ×3 (15:19→16:15)
[2020-12-13] MEDS ORDERED: Flumazenil 0.5 mg/5 ml 0.1 MG/ML 5 ml VIAL ONE (15:19)
[2020-12-13] MEDS: Enoxaparin 40 MG/0.4 ML SYR SUBCUT SCH (16:44)
[2020-12-13] MEDS ORDERED: ceFAZolin 1 GM X ONE DOSE (AddVan) IVPB (17:00)
[2020-12-13] MEDS: Cholecalciferol (VIT D3) 400 units TAB PO SCH (19:07)
[2020-12-13] MEDS: Morphine 2 MG/ML SYRINGE IV PRN (21:51)
[2020-12-14] MEDS: Morphine 2 MG/ML SYRINGE IV PRN ×3 (04:10→13:57)
[2020-12-14] MEDS: Hydrocortisone INJ 100 MG/2ML 2 ML VIAL IV SCH ×2 (10:07→17:52)
[2020-12-14] MEDS: Potassium Chloride LIQUID 20 MEQ/15 ML LIQUID PO SCH (10:19)
[2020-12-14] MEDS ORDERED: Morphine 2 MG/ML SYRINGE IV ONE (10:56)
[2020-12-14 15:27] LABS: Copper Level 0.94 mcg/mL (0.75-1.45)
[2020-12-14] MEDS: Enoxaparin 40 MG/0.4 ML SYR SUBCUT SCH (17:51)
[2020-12-15 05:55] LABS: BUN/Creatinine Ratio 46.5 (8-20); Calcium 8.4 mg/dL (8.6-10.3); EGFR African American 169.3 (>60); EGFR Non-African American 139.9 (>60); Potassium 3.6 mmol/L (3.5-5.0)
[2020-12-15] MEDS: Potassium Chloride LIQUID 20 MEQ/15 ML LIQUID PO SCH (08:13)
[2020-12-15] MEDS: Hydrocortisone INJ 100 MG/2ML 2 ML VIAL IV SCH (08:14)
[2020-12-15 12:14] LABS: Vitamin E 15.4 mg/L (5.5 - 17.0)
[2020-12-15 16:59] LABS: Acylcarn/Free Carnitine Ratio 0.2 (0.1-0.8)
[2020-12-15] MEDS: Enoxaparin 40 MG/0.4 ML SYR SUBCUT SCH (17:25)
[2020-12-15] MEDS: Morphine 2 MG/ML SYRINGE IV PRN (21:03)
[2020-12-16] MEDS: Potassium Chloride LIQUID 20 MEQ/15 ML LIQUID PO SCH (07:59)
[2020-12-16 09:52] VITALS: BP 121/71
[2020-12-16 10:06] LABS: Anti-Glial/Neuronal Nuc Ab-1 A Negative titer (<1:240); Anti-Neuronal Nuclear Ab Type1 Negative titer (<1:240); Anti-Neuronal Nuclear Ab Type2 Negative titer (<1:240); Anti-Neuronal Nuclear Ab Type3 Negative titer (<1:240); CRMP-5 IgG Antibody Negative titer (<1:240); Purkinje Cell Cytoplasm Typ Tr Negative titer (<1:240); Purkinje Cell Cytoplasm Type 1 Negative titer (<1:240); Purkinje Cell Cytoplasm Type 2 Negative titer (<1:240)
== END 2020-12-16 12:10 | disposition home or self-care (01) | DRG 871 ==
LOC: CHOA 10:27 → ICU 12:04 → MEDTELE 12-08 13:42
PROVIDERS: ADMIT Internal Medicine Hematology & Oncology; ATTEND Internal Medicine Hematology & Oncology

== ENCOUNTER 2022-06-08 13:00 | Observation (INO) ==
[2022-06-08 16:01] LABS: Venous Bicarbonate HCO3 31.5 mmol/L (24-28)
[2022-06-08 16:03] LABS: Hematocrit 33 % (35-47); Hemoglobin 11.2 g/dL (12.0-16.0); Mean Corpuscular HGB Conc 34 g/dL (31-36); Mean Corpuscular Hemoglobin 32 pg (27-31); Mean Corpuscular Volume 94 fL (80-97); Mean Platelet Volume 7.3 fL (7.4-10.4); Platelet Count 269 10^3/uL (150-450); Red Blood Count 3.52 10^6 /uL (3.70-4.87); Red Cell Distribution Width 15 % (10-15); White Blood Count 1.4 10^3/uL (3.5-10.8)
[2022-06-08 16:10] LABS: ABS Neutrophils 0.8 10^3/ul (1.5-7.7)
[2022-06-08] MEDS ORDERED: Cefepime 1 GM in Dextrose 1 GM/50 ML BAG IV ONE (16:18)
[2022-06-08] MEDS ORDERED: Vancomycin 1,000 MG in NS 0.9% 250 ml 250 ML IVPB ONE (16:18)
[2022-06-08 16:44] LABS: Albumin 3.3 g/dL (3.2-5.2); Albumin/Globulin Ratio 1.9 (1-3); Calcium 8.3 mg/dL (8.6-10.3); Globulin 1.7 g/dL (2-4); Potassium 3.9 mmol/L (3.5-5.0); Total Bilirubin 1.1 mg/dL (0.2-1.0)
[2022-06-08 17:18] LABS: Basophilic Stippling 1+
[2022-06-08 17:24] LABS: ABS Lymphocytes 0.4 10^3/ul (1.0-4.8); ABS Monocytes 0.2 10^3/ul (0-0.8); Eosinophil % 0.3 %; Lymphocyte % 30.7 %
[2022-06-08] MEDS ORDERED: Ondansetron 4 mg VIAL 2 MG/ML 2 ml VIAL IV PRN (17:40)
[2022-06-08] MEDS ORDERED: Enoxaparin 40 MG/0.4 ML SYR SUBCUT SCH (18:00)
[2022-06-08] MEDS ORDERED: Vancomycin per Pharmacy 1 EA NOTE FOLLOW UP SCH (18:00)
[2022-06-08 20:26] LABS: Urine Appearance Clear; Urine Color Yellow
[2022-06-08 20:27] LABS: Urine Bilirubin Negative (Negative); Urine Blood Negative (Negative); Urine Glucose Negative (Negative); Urine Ketones 2+ (40mg/dL) (Negative); Urine Nitrite Negative (Negative); Urine Protein Negative (Negative); Urine Urobilinogen 0.2 (Negative) (Negative)
[2022-06-08 20:49] LABS: Urine Bacteria Absent (Absent); Urine Red Blood Cell Absent (Absent); Urine Squamous Epithelial Cell Present (Absent); Urine White Blood Cell Trace(0-5/hpf) (Absent)
[2022-06-09 05:29] LABS: Hematocrit 32 % (35-47); Hemoglobin 10.7 g/dL (12.0-16.0); Mean Corpuscular HGB Conc 33 g/dL (31-36); Mean Corpuscular Hemoglobin 31 pg (27-31); Mean Corpuscular Volume 94 fL (80-97); Mean Platelet Volume 7.2 fL (7.4-10.4); Platelet Count 276 10^3/uL (150-450); Red Blood Count 3.45 10^6 /uL (3.70-4.87); Red Cell Distribution Width 15 % (10-15); White Blood Count 1.9 10^3/uL (3.5-10.8)
[2022-06-09] MEDS ORDERED: Cefepime 2 GM in Dextrose 2 GM/50 ML BAG IV SCH (06:00)
[2022-06-09 06:05] LABS: Calcium 8.2 mg/dL (8.6-10.3); Magnesium 2.2 mg/dL (1.9-2.7); Potassium 3.8 mmol/L (3.5-5.0); eGFR CKD-EPI 96.4 (>60)
[2022-06-09 06:18] LABS: ABS Lymphocytes 0.5 10^3/ul (1.0-4.8); ABS Monocytes 0.4 10^3/ul (0-0.8); Eosinophil % 0.1 %; Lymphocyte % 26.1 %; RBC Morphology Normal (Normal)
[2022-06-09] MEDS ORDERED: Vancomycin 750 MG in NS 0.9% 250 ML IVPB SCH (06:30)
[2022-06-09] MEDS ORDERED: Potassium Chloride LIQUID 20 MEQ/15 ML LIQUID PO SCH (09:00)
[2022-06-09 11:28] VITALS: BP 103/55
[2022-06-10] MEDS ORDERED: Vancomycin Trough Check NOTE FOLLOW UP ONE (06:00)
== END 2022-06-09 13:00 | disposition home or self-care (01) ==
LOC: ED 13:00 → INTOOBSV 17:40 → SUATTDRO 17:40 → EDHOLD 17:40 → MED 20:01
PROVIDERS: ADMIT Internal Medicine; ATTEND Internal Medicine Medical Oncology

== ENCOUNTER 2022-07-07 15:11 | Inpatient (IN) ==
[2022-07-07] MEDS ORDERED: Vancomycin 1,000 MG in NS 0.9% 250 ml 250 ML IVPB ONE (16:52)
[2022-07-07] MEDS ORDERED: cefTRIAXone 1 gm/50 mL D5W 1 GM/50 ML BAG IV ONE (16:56)
[2022-07-07] MEDS ORDERED: NS 0.9% 250 ml 250 ML IV ONE (16:56)
[2022-07-07] MEDS ORDERED: Ondansetron 4 mg VIAL 2 MG/ML 2 ml VIAL IV PRN (17:24)
[2022-07-07] MEDS ORDERED: Enoxaparin 40 MG/0.4 ML SYR SUBCUT SCH (18:00)
[2022-07-07 18:02] LABS: Hematocrit 28 % (35-47); Hemoglobin 9.2 g/dL (12.0-16.0); Mean Corpuscular HGB Conc 33 g/dL (31-36); Mean Corpuscular Hemoglobin 31 pg (27-31); Mean Corpuscular Volume 93 fL (80-97); Mean Platelet Volume 6.9 fL (7.4-10.4); Platelet Count 252 10^3/uL (150-450); Red Cell Distribution Width 15 % (10-15); White Blood Count 3.7 10^3/uL (3.5-10.8)
[2022-07-07 18:28] LABS: Albumin 2.8 g/dL (3.2-5.2); C Reactive Protein 60.95 mg/L (<8.01); Calcium 7.9 mg/dL (8.6-10.3); Globulin 1.4 g/dL (2-4); Potassium 4.1 mmol/L (3.5-5.0); Total Bilirubin 0.6 mg/dL (0.2-1.0); Total Protein 4.2 g/dL (6.4-8.9); eGFR CKD-EPI 92.3 (>60)
[2022-07-07] MEDS ORDERED: Vancomycin per Pharmacy 1 EA NOTE FOLLOW UP SCH (19:00)
[2022-07-07] MEDS ORDERED: Cefepime ADVAN 1 GM in NS 0.9% 50 ML 50 ML IVPB SCH (19:00)
[2022-07-07 19:31] LABS: ABS Lymphocytes 0.5 10^3/ul (1.0-4.8); ABS Monocytes 0.3 10^3/ul (0-0.8); ABS Neutrophils 2.8 10^3/ul (1.5-7.7); Lymphocyte % 13.8 %
[2022-07-07] MEDS ORDERED: Heparin 5000 UNITS/ML 1 mL VIAL SUBCUT ONE (19:49)
[2022-07-07 21:29] LABS: Urine Appearance Clear; Urine Bilirubin Negative (Negative); Urine Color Yellow; Urine Glucose Negative (Negative); Urine Ketones Negative (Negative); Urine Specific Gravity 1.025 (1.005-1.030)
[2022-07-07 21:30] LABS: Urine Blood Negative (Negative); Urine Nitrite Negative (Negative); Urine Protein Trace (Negative); Urine Urobilinogen 0.2 (Negative) (Negative); Urine pH 6.5 (5.0-9.0)
[2022-07-07 21:43] LABS: Urine Bacteria Absent (Absent); Urine Red Blood Cell Absent (Absent); Urine Squamous Epithelial Cell Present (Absent); Urine White Blood Cell 1+(6-10/hpf) (Absent)
[2022-07-07] MEDS ORDERED: Heparin 5000 UNITS/ML 1 mL VIAL SUBCUT SCH (22:00)
[2022-07-08 06:45] LABS: Hematocrit 30 % (35-47); Hemoglobin 10.1 g/dL (12.0-16.0); Mean Corpuscular HGB Conc 34 g/dL (31-36); Mean Corpuscular Hemoglobin 31 pg (27-31); Mean Corpuscular Volume 92 fL (80-97); Mean Platelet Volume 7.5 fL (7.4-10.4); Platelet Count 308 10^3/uL (150-450); Red Blood Count 3.27 10^6 /uL (3.70-4.87); Red Cell Distribution Width 15 % (10-15); White Blood Count 3.8 10^3/uL (3.5-10.8)
[2022-07-08 07:02] LABS: C Reactive Protein 80.07 mg/L (<8.01)
[2022-07-08 07:17] LABS: TSH Ultra Thyroid Stim Horm 0.64 mcIU/mL (0.34-5.60)
[2022-07-08 07:26] LABS: RBC Morphology Normal (Normal)
[2022-07-08 07:27] LABS: ABS Lymphocytes 0.6 10^3/ul (1.0-4.8); ABS Monocytes 0.5 10^3/ul (0-0.8); ABS Neutrophils 2.7 10^3/ul (1.5-7.7); Eosinophil % 0.2 %; Lymphocyte % 16.6 %
[2022-07-08] MEDS: Vancomycin 750 MG in NS 0.9% 250 ML IVPB SCH ×2 (08:47→20:15)
[2022-07-08] MEDS: Potassium Chlor 20 meq TAB.ER PO SCH (08:47)
[2022-07-08] MEDS: Aspirin EC 81 mg TAB.EC (enteric coated) PO SCH (08:47)
[2022-07-08 08:54] LABS: Anion Gap 9 mmol/L (2-11); Blood Urea Nitrogen 14 mg/dL (6-24); CO2 Carbon Dioxide 29 mmol/L (22-32); Calcium 8.4 mg/dL (8.6-10.3); Chloride 101 mmol/L (101-111); Glucose 100 mg/dL (70-100); Potassium 4.5 mmol/L (3.5-5.0); Sodium 139 mmol/L (135-145)
[2022-07-08 09:53] LABS: Total Iron Binding Capacity 265 mcg/dL (250-450); Transferrin 189 mg/dL (203-362)
[2022-07-08 10:07] LABS: % Iron Saturation 8 % (15-55); Iron < 20 ug/dL (50-212); Unsaturated Iron Binding 245 ug/dL
[2022-07-08 12:03] LABS: Ferritin 230.6 ng/mL (11-307)
[2022-07-08] MEDS: Enoxaparin 40 MG/0.4 ML SYR SUBCUT SCH (12:52)
[2022-07-08] MEDS ORDERED: cefTRIAXone 1 gm/50 mL D5W 1 GM/50 ML BAG IV SCH (18:00)
[2022-07-09 05:31] LABS: Hematocrit 27 % (35-47); Mean Corpuscular HGB Conc 33 g/dL (31-36); Mean Corpuscular Hemoglobin 31 pg (27-31); Mean Corpuscular Volume 92 fL (80-97); Mean Platelet Volume 7.1 fL (7.4-10.4); Platelet Count 264 10^3/uL (150-450); Red Blood Count 2.94 10^6 /uL (3.70-4.87); Red Cell Distribution Width 15 % (10-15); White Blood Count 3.5 10^3/uL (3.5-10.8)
[2022-07-09 06:16] LABS: ABS Lymphocytes 0.5 10^3/ul (1.0-4.8); ABS Monocytes 0.3 10^3/ul (0-0.8); ABS Neutrophils 2.6 10^3/ul (1.5-7.7); Eosinophil % 0.2 %; Lymphocyte % 14.5 %; RBC Morphology Normal (Normal)
[2022-07-09 06:19] LABS: CRP High Sensitivity 60.46 mg/L (<2.00); Potassium 4.3 mmol/L (3.5-5.0); eGFR CKD-EPI 93.7 (>60)
[2022-07-09] MEDS ORDERED: Vancomycin Trough Check NOTE FOLLOW UP ONE (07:30)
[2022-07-09 08:18] LABS: Vancomycin Trough 7.9 mcg/mL; eGFR CKD-EPI 93.7 (>60)
[2022-07-09] MEDS: Vancomycin 750 MG in NS 0.9% 250 ML IVPB SCH (08:19)
[2022-07-09] MEDS: Aspirin EC 81 mg TAB.EC (enteric coated) PO SCH (10:27)
[2022-07-09] MEDS: Potassium Chlor 20 meq TAB.ER PO SCH (10:28)
[2022-07-09] MEDS: ceFAZolin 2 GM in NS PREMIX 2 GM/100 ML BAG IVPB SCH ×2 (10:59→18:14)
[2022-07-09] MEDS: Enoxaparin 40 MG/0.4 ML SYR SUBCUT SCH (11:00)
[2022-07-09] MEDS ORDERED: Vancomycin 750 MG in NS 0.9% 250 ML IVPB SCH (20:00)
[2022-07-09] MEDS ORDERED: Vancomycin 1000 MG in NS 0.9% 250 ML IVPB SCH (20:00)
[2022-07-10] MEDS: ceFAZolin 2 GM in NS PREMIX 2 GM/100 ML BAG IVPB SCH ×2 (03:30→13:19)
[2022-07-10 05:25] LABS: Hematocrit 27 % (35-47); Hemoglobin 8.8 g/dL (12.0-16.0); Mean Corpuscular HGB Conc 33 g/dL (31-36); Mean Corpuscular Hemoglobin 31 pg (27-31); Mean Corpuscular Volume 93 fL (80-97); Mean Platelet Volume 7.4 fL (7.4-10.4); Platelet Count 276 10^3/uL (150-450); Red Blood Count 2.87 10^6 /uL (3.70-4.87); Red Cell Distribution Width 15 % (10-15); White Blood Count 3.5 10^3/uL (3.5-10.8)
[2022-07-10 05:50] LABS: Calcium 8.1 mg/dL (8.6-10.3); Magnesium 2.1 mg/dL (1.9-2.7); Potassium 4.5 mmol/L (3.5-5.0); eGFR CKD-EPI 92.8 (>60)
[2022-07-10 07:15] LABS: Toxic Granulation 1+
[2022-07-10 07:17] LABS: ABS Lymphocytes 0.6 10^3/ul (1.0-4.8); ABS Monocytes 0.3 10^3/ul (0-0.8); ABS Neutrophils 2.6 10^3/ul (1.5-7.7); Anisocytosis 1+; Eosinophil % 0.2 %; Lymphocyte % 16.6 %; Microcytosis 1+; Nucleated Red Blood Cells % 0.1
[2022-07-10] MEDS ORDERED: Naloxone 0.4 mg VIAL 0.4 mg/ml 1 ml VIAL ONE (09:06)
[2022-07-10] MEDS ORDERED: fentaNYL 100 mcg/2 ml 50 MCG/ML VIAL ONE (09:06)
[2022-07-10] MEDS ORDERED: Flumazenil 0.5 mg/5 ml 0.1 MG/ML 5 ml VIAL ONE (09:06)
[2022-07-10] MEDS ORDERED: Midazolam 5 mg/5 ml VIAL 1 mg/ml 5 ml VIAL (5 mg) ONE (09:06)
[2022-07-10] MEDS: Aspirin EC 81 mg TAB.EC (enteric coated) PO SCH (13:34)
[2022-07-10] MEDS: Potassium Chlor 20 meq TAB.ER PO SCH (13:35)
[2022-07-10] MEDS: Enoxaparin 40 MG/0.4 ML SYR SUBCUT SCH (13:35)
[2022-07-10] MEDS: ceFAZolin 2 GM PREMIX 2 GM/50 ML BAG IVPB SCH (18:37)
[2022-07-11] MEDS: ceFAZolin 2 GM PREMIX 2 GM/50 ML BAG IVPB SCH ×3 (03:05→18:25)
[2022-07-11 06:04] LABS: Hematocrit 27 % (35-47); Hemoglobin 8.9 g/dL (12.0-16.0); Mean Corpuscular HGB Conc 33 g/dL (31-36); Mean Corpuscular Hemoglobin 30 pg (27-31); Mean Corpuscular Volume 91 fL (80-97); Mean Platelet Volume 7.2 fL (7.4-10.4); Platelet Count 310 10^3/uL (150-450); Red Blood Count 2.97 10^6 /uL (3.70-4.87); Red Cell Distribution Width 15 % (10-15); White Blood Count 3.2 10^3/uL (3.5-10.8)
[2022-07-11 07:00] LABS: Calcium 7.9 mg/dL (8.6-10.3); Potassium 3.9 mmol/L (3.5-5.0); eGFR CKD-EPI 90.2 (>60)
[2022-07-11] MEDS ORDERED: Vancomycin Trough Check NOTE FOLLOW UP ONE (07:30)
[2022-07-11 08:56] LABS: RBC Morphology Normal (Normal)
[2022-07-11 08:57] LABS: ABS Lymphocytes 0.6 10^3/ul (1.0-4.8); ABS Monocytes 0.3 10^3/ul (0-0.8); ABS Neutrophils 2.3 10^3/ul (1.5-7.7); Eosinophil % 0.1 %; Lymphocyte % 17.4 %; Nucleated Red Blood Cells % 0.1
[2022-07-11] MEDS: Potassium Chlor 20 meq TAB.ER PO SCH (10:34)
[2022-07-11] MEDS: Aspirin EC 81 mg TAB.EC (enteric coated) PO SCH (10:34)
[2022-07-11] MEDS: Enoxaparin 40 MG/0.4 ML SYR SUBCUT SCH (10:42)
[2022-07-12] MEDS: ceFAZolin 2 GM PREMIX 2 GM/50 ML BAG IVPB SCH ×3 (03:12→17:43)
[2022-07-12 05:30] LABS: Hematocrit 29 % (35-47); Hemoglobin 9.4 g/dL (12.0-16.0); Mean Corpuscular HGB Conc 33 g/dL (31-36); Mean Corpuscular Hemoglobin 30 pg (27-31); Mean Corpuscular Volume 91 fL (80-97); Platelet Count 345 10^3/uL (150-450); Red Blood Count 3.15 10^6 /uL (3.70-4.87); Red Cell Distribution Width 15 % (10-15); White Blood Count 3.6 10^3/uL (3.5-10.8)
[2022-07-12 06:02] LABS: Calcium 8.1 mg/dL (8.6-10.3); Magnesium 1.9 mg/dL (1.9-2.7); eGFR CKD-EPI 92.3 (>60)
[2022-07-12 08:07] LABS: RBC Morphology Normal (Normal)
[2022-07-12 08:08] LABS: ABS Lymphocytes 0.7 10^3/ul (1.0-4.8); ABS Monocytes 0.3 10^3/ul (0-0.8); ABS Neutrophils 2.7 10^3/ul (1.5-7.7); Eosinophil % 0.1 %; Nucleated Red Blood Cells % 0.1
[2022-07-12] MEDS: Potassium Chlor 20 meq TAB.ER PO SCH (10:38)
[2022-07-12] MEDS: Aspirin EC 81 mg TAB.EC (enteric coated) PO SCH (10:39)
[2022-07-12] MEDS: Enoxaparin 40 MG/0.4 ML SYR SUBCUT SCH (13:22)
[2022-07-13] MEDS: ceFAZolin 2 GM PREMIX 2 GM/50 ML BAG IVPB SCH ×3 (03:21→18:25)
[2022-07-13 07:05] LABS: Hematocrit 26 % (35-47); Hemoglobin 8.8 g/dL (12.0-16.0); Mean Corpuscular HGB Conc 33 g/dL (31-36); Mean Corpuscular Hemoglobin 31 pg (27-31); Mean Corpuscular Volume 92 fL (80-97); Mean Platelet Volume 7.3 fL (7.4-10.4); Platelet Count 356 10^3/uL (150-450); Red Blood Count 2.86 10^6 /uL (3.70-4.87); Red Cell Distribution Width 15 % (10-15)
[2022-07-13 07:11] LABS: Albumin 2.7 g/dL (3.2-5.2); Albumin/Globulin Ratio 1.8 (1-3); C Reactive Protein 13.9 mg/L (<8.01); Globulin 1.5 g/dL (2-4); Potassium 3.8 mmol/L (3.5-5.0); Total Bilirubin 0.3 mg/dL (0.2-1.0); Total Protein 4.2 g/dL (6.4-8.9); eGFR CKD-EPI 93.2 (>60)
[2022-07-13] MEDS: Potassium Chlor 20 meq TAB.ER PO SCH (09:51)
[2022-07-13] MEDS: Aspirin EC 81 mg TAB.EC (enteric coated) PO SCH (09:51)
[2022-07-13 11:36] LABS: ABS Lymphocytes 0.6 10^3/ul (1.0-4.8); ABS Monocytes 0.3 10^3/ul (0-0.8); ABS Neutrophils 2.1 10^3/ul (1.5-7.7); Eosinophil % 0.3 %; Lymphocyte % 20.7 %; RBC Morphology Normal (Normal)
[2022-07-13] MEDS: Enoxaparin 40 MG/0.4 ML SYR SUBCUT SCH (12:25)
[2022-07-13] MEDS: CAMPHOR TOPICAL SCH (21:42)
[2022-07-13] MEDS: MENTHOL TOPICAL SCH (21:42)
[2022-07-13] MEDS: [UNRECOGNIZED DRUG - OTHER] TOPICAL SCH (21:42)
[2022-07-14] MEDS: ceFAZolin 2 GM PREMIX 2 GM/50 ML BAG IVPB SCH ×3 (02:46→18:20)
[2022-07-14 07:58] LABS: Hematocrit 28 % (35-47); Hemoglobin 9.1 g/dL (12.0-16.0); Mean Corpuscular HGB Conc 33 g/dL (31-36); Mean Corpuscular Hemoglobin 30 pg (27-31); Mean Corpuscular Volume 92 fL (80-97); Mean Platelet Volume 6.9 fL (7.4-10.4); Platelet Count 368 10^3/uL (150-450); Red Blood Count 3.02 10^6 /uL (3.70-4.87); Red Cell Distribution Width 15 % (10-15); White Blood Count 2.8 10^3/uL (3.5-10.8)
[2022-07-14] MEDS: Potassium Chlor 20 meq TAB.ER PO SCH (09:01)
[2022-07-14] MEDS: Aspirin EC 81 mg TAB.EC (enteric coated) PO SCH (09:02)
[2022-07-14 09:07] LABS: Albumin 2.8 g/dL (3.2-5.2); Calcium 8.1 mg/dL (8.6-10.3); Globulin 1.4 g/dL (2-4); Total Bilirubin 0.4 mg/dL (0.2-1.0); Total Protein 4.2 g/dL (6.4-8.9); eGFR CKD-EPI 92.3 (>60)
[2022-07-14 09:47] LABS: ABS Lymphocytes 0.7 10^3/ul (1.0-4.8); ABS Monocytes 0.3 10^3/ul (0-0.8); ABS Neutrophils 1.8 10^3/ul (1.5-7.7); Eosinophil % 0.3 %; Lymphocyte % 23.2 %
[2022-07-14 09:48] LABS: RBC Morphology Normal (Normal)
[2022-07-14] MEDS: Enoxaparin 40 MG/0.4 ML SYR SUBCUT SCH (12:27)
[2022-07-14] MEDS: MENTHOL TOPICAL SCH (22:41)
[2022-07-14] MEDS: [UNRECOGNIZED DRUG - OTHER] TOPICAL SCH (22:41)
[2022-07-14] MEDS: CAMPHOR TOPICAL SCH (22:41)
[2022-07-15] MEDS: ceFAZolin 2 GM PREMIX 2 GM/50 ML BAG IVPB SCH ×3 (02:48→18:06)
[2022-07-15 08:29] LABS: Hematocrit 28 % (35-47); Hemoglobin 9.1 g/dL (12.0-16.0); Mean Corpuscular HGB Conc 32 g/dL (31-36); Mean Corpuscular Hemoglobin 29 pg (27-31); Mean Corpuscular Volume 91 fL (80-97); Mean Platelet Volume 6.9 fL (7.4-10.4); Platelet Count 360 10^3/uL (150-450); Red Cell Distribution Width 15 % (10-15); White Blood Count 2.4 10^3/uL (3.5-10.8)
[2022-07-15] MEDS: Aspirin EC 81 mg TAB.EC (enteric coated) PO SCH (08:32)
[2022-07-15] MEDS: Potassium Chlor 20 meq TAB.ER PO SCH (08:33)
[2022-07-15 08:53] LABS: RBC Morphology Normal (Normal)
[2022-07-15 08:54] LABS: ABS Lymphocytes 0.7 10^3/ul (1.0-4.8); ABS Monocytes 0.3 10^3/ul (0-0.8); ABS Neutrophils 1.4 10^3/ul (1.5-7.7); Eosinophil % 0.5 %; Lymphocyte % 27.5 %; Nucleated Red Blood Cells % 0.1
[2022-07-15 08:58] LABS: Albumin 2.7 g/dL (3.2-5.2); Albumin/Globulin Ratio 1.8 (1-3); C Reactive Protein 9.55 mg/L (<8.01); Calcium 8.1 mg/dL (8.6-10.3); Globulin 1.5 g/dL (2-4); Potassium 3.7 mmol/L (3.5-5.0); Total Bilirubin 0.4 mg/dL (0.2-1.0); Total Protein 4.2 g/dL (6.4-8.9); eGFR CKD-EPI 93.2 (>60)
[2022-07-15] MEDS: Enoxaparin 40 MG/0.4 ML SYR SUBCUT SCH (12:13)
[2022-07-15] MEDS: MENTHOL TOPICAL SCH (21:51)
[2022-07-15] MEDS: CAMPHOR TOPICAL SCH (21:51)
[2022-07-15] MEDS: [UNRECOGNIZED DRUG - OTHER] TOPICAL SCH (21:51)
[2022-07-16] MEDS: ceFAZolin 2 GM PREMIX 2 GM/50 ML BAG IVPB SCH ×2 (02:03→11:18)
[2022-07-16] MEDS: Potassium Chlor 20 meq TAB.ER PO SCH (08:25)
[2022-07-16] MEDS: Aspirin EC 81 mg TAB.EC (enteric coated) PO SCH (08:26)
[2022-07-16 12:16] VITALS: BP 138/74
[2022-07-16] MEDS: Enoxaparin 40 MG/0.4 ML SYR SUBCUT SCH (12:28)
== END 2022-07-16 15:00 | disposition home or self-care (01) | DRG 315 ==
LOC: ED 15:11 → EDHOLD 17:24 → SUATTDRO 17:24 → MED 23:39
PROVIDERS: ADMIT Pediatrics; ATTEND Internal Medicine